=== PATIENT | male | born 1955 ===

== ENCOUNTER 2017-10-21 17:48 | Emergency (ER) | payer OTHER ==
[2017-10-21 17:55] VITALS: BP 134/84; PULSE 75; RESP 18; TEMP 98.7; O2SAT 100
--- NOTE | 2017-10-21 18:45 | ED PDOC ---
HPI: Trauma/Fall - HPI Time Seen by Provider: 10/21/17 18:08 Chief Complaint (Nursing): Trauma Chief Complaint (Provider): fall History Per: Patient, Family (son and ) History/Exam Limitations: no limitations Additional Complaint(s): Cole Reid is a 62 year old male, with a past medical history of hypercholesterolemia, who was brought to the emergency department via EMS accompanied by family for b/l leg injuries s/p fall just prior to arrival. Patient reports he was on his way to take his dog to the groomer when he accidentally tripped on a rock and stumbled. Patient states he is not able to move his right leg and reports a sharp pain that is going up right leg. He was not able to ambulate on scene. Patient has an abrasion to left knee and left elbow. He denies head injury or LOC and denies any other complaints at this time. PMD: Sergio Isaacs Past Medical History Reviewed: Historical Data, Nursing Documentation, Vital Signs Vital Signs: Last Vital Signs Temp 98.7 F 10/21/17 17:52 Pulse 75 10/21/17 17:52 Resp 18 10/21/17 17:52 BP 134/84 10/21/17 17:52 Pulse Ox 100 10/21/17 17:52 - Medical History PMH: Hypercholesterolemia - Surgical History Surgical History: Appendectomy Other surgeries: right wrist surgery - Family History Family History: States: No Known Family Hx - Living Arrangements Living Arrangements: With Family - Social History Current smoker - smoking cessation education provided: No Alcohol: None Drugs: Denies - Immunization History Hx Tetanus Toxoid Vaccination: Yes (updated 2 months ago) - Home Medications Home Medications: Ambulatory Orders Medication Instructions Recorded Cyclobenzaprine [Cyclobenzaprine 10 mg PO TID PRN #20 tab 10/21/17 HCl] Ibuprofen [Motrin Tab] 800 mg PO Q8 PRN #20 tab 10/21/17 - Allergies Allergies/Adverse Reactions: Allergies Allergy/AdvReac Type Severity Reaction Status Date / Time acetaminophen [From Tylenol] Allergy ANAPHYLAXIS Verified 10/21/17 19:01 Sulfa (Sulfonamide Allergy RASH Verified 10/21/17 17:52 Antibiotics) Review of Systems ROS Statement: Except As Marked, All Systems Reviewed And Found Negative Musculoskeletal: Positive for: Other (injury to both legs, abrasions) Neurological: Positive for: Other (no head injury or LOC) Physical Exam - Reviewed Nursing Documentation Reviewed: Yes Vital Signs Reviewed: Yes - Physical Exam Appears: Positive for: Well, Non-toxic Head Exam: Positive for: ATRAUMATIC, NORMAL INSPECTION, NORMOCEPHALIC Skin: Positive for: Normal Color. Negative for: Rash Eye Exam: Positive for: Normal appearance, EOMI, PERRL Neck: Positive for: Normal, Painless ROM. Negative for: Pain On Movement Of Neck Cardiovascular/Chest: Positive for: Regular Rate, Rhythm, Chest Non Tender. Negative for: Murmur Respiratory: Positive for: Normal Breath Sounds. Negative for: Respiratory Distress Gastrointestinal/Abdominal: Positive for: Soft. Negative for: Tenderness, Distended, Guarding, Rebound Back: Negative for: L CVA Tenderness, R CVA Tenderness, Vertebral Tenderness Extremity: Positive for: Other (abrasion to left patellar region with full rom of left knee, abrasion left olecranon with full rom of left elbow, moderate tenderness to right anterior thigh and right knee, decreased rom right hip and knee, unable to perform straight leg raise due to pain) Neurologic/Psych: Positive for: Alert, Oriented - ECG O2 Sat by Pulse Oximetry: 100 (RA) Pulse Ox Interpretation: Normal - Other Rad Left knee x-ray X-Ray: Interpreted by Me, Viewed By Me X-Ray Interpretation: no fx, no dis Pelvis, right hip, right femur, right knee x-ray X-Ray: Interpreted by Me, Viewed By Me X-Ray Interpretation: no fx, no dis Medical Decision Making Medical Decision Making: Time: 18:08 Initial Impression: 62 year old with bilateral leg pain s/p trip and fall. Initial Plan --Knee 3 views LT [RAD] --Knee 3 views RT [RAD] --Motrin tab 600 mg PO --Tylenol 325mg tab 975 mg PO --Femur Min 2 views RT [RAD] --Hip min 2v w/ Pelvis RT [RAD] Patient reports improvement pain after medications given. He is aware of all x- ray results, all questions answered. Procedure note: Abrasions to left elbow and left knee were cleansed with normal saline and Betadine and dressed with bacitracin and gauze wraps. Knee immobilizer was applied to her right leg, neurovascular intact status post placement. Procedure was tolerated well by patient with no complications. Patient given crutches and was instructed on proper use of crutches. Prescriptions provided for Motrin and Flexeril. Advised ice, elevation and rest to affected area. Patient was referred to orthopedist nutrition specialist for follow up. Scribe Attestation: Documented by Riley Alcala, acting as a scribe for Vijaya Santos PA-C Provider Scribe Attestation: All medical record entries made by the Scribe were at my direction and personally dictated by me. I have reviewed the chart and agree that the record accurately reflects my personal performance of the history, physical exam, medical decision making, and the department course for this patient. I have also personally directed, reviewed, and agree with the discharge instructions and disposition. Disposition - Clinical Impression Clinical Impression: Knee contusion, Muscle strain of lower extremity, Abrasions of multiple sites - Patient ED Disposition Is Patient to be Admitted: No Counseled Patient/Family Regarding: Studies Performed, Diagnosis, Need For Followup, Rx Given - Disposition Referrals: Solange Zapata MD [Staff Provider] - Disposition: Routine/Home Disposition Time: 20:35 Condition: STABLE Additional Instructions: Ice, rest and elevate affected areas. Wash daily with soap and water and apply bacitracin once per day. Take prescription meds as directed as needed for pain. Follow-up with primary doctor or orthopedist for any persistent symptoms. Prescriptions: Cyclobenzaprine [Cyclobenzaprine HCl] 10 mg PO TID PRN #20 tab PRN Reason: Muscle Spasm Ibuprofen [Motrin Tab] 800 mg PO Q8 PRN #20 tab PRN Reason: Pain, Moderate (4-7) Instructions: Lower Extremity Muscle Strain, Contusion (DC), Skin Abrasions (DC ) Forms: [employer] ([place]ian)
--- NOTE | 2017-10-22 09:09 | RAD ---
PROCEDURE: Right Femur Radiographs. HISTORY: Trauma COMPARISON: None. TECHNIQUE: AP and Lateral Radiographs of the right femur. FINDINGS: FEMUR: Bone alignment and mineralization are normal. There is no acute displaced fracture or bone destruction. SOFT TISSUES: Normal. OTHER FINDINGS: None. IMPRESSION: No acute fracture.
--- NOTE | 2017-10-22 09:33 | RAD ---
PROCEDURE: Left Knee Radiographs. HISTORY: Pain. COMPARISON: None. FINDINGS: BONES: Bone alignment and mineralization are normal. There is no acute displaced fracture or bone destruction. JOINTS: There is mild tricompartmental degenerative osteoarthrosis, worse in the medial compartment with reduced joint spaces, marginal osteophytes and tibial spiking. JOINT EFFUSION: There is a small suprapatellar joint effusion. OTHER FINDINGS: None. IMPRESSION: No acute fracture or dislocation. Mild Tricompartmental degenerative osteoarthrosis, worse in the medial compartment and small suprapatellar joint effusion.
--- NOTE | 2017-10-22 09:39 | RAD ---
PROCEDURE: Right Knee Radiographs. HISTORY: Trauma COMPARISON: None. FINDINGS: BONES: Bone alignment and mineralization are normal. There is no acute displaced fracture or bone destruction. JOINTS: Normal. No osteoarthritis. There is a prominent suprapatellar enthesophyte. JOINT EFFUSION: None. OTHER FINDINGS: None. IMPRESSION: No acute fracture or dislocation.
--- NOTE | 2017-10-22 09:39 | RAD ---
PROCEDURE: Right Hip Radiographs. HISTORY: Trauma COMPARISON: None. FINDINGS: BONES: Bone alignment and mineralization are normal. There is no acute displaced fracture or bone destruction. JOINTS: Normal. SOFT TISSUES: Normal. OTHER FINDINGS: None. IMPRESSION: No acute fracture or dislocation.
== END 2017-10-21 20:42 | disposition home or self-care (01) ==
LOC: H.ER 17:48
DX: S80.00XA Contusion of unspecified knee, initial encounter (principal); S86.919A Strain of unspecified muscle(s) and tendon(s) at lower leg level, unspecified leg, initial encounter; S80.212A Abrasion, left knee, initial encounter; W01.0XXA Fall on same level from slipping, tripping and stumbling without subsequent striking against object, initial encounter; E78.00 Pure hypercholesterolemia, unspecified